=== PATIENT | female | born 1950 | race Two or more races ===

== ENCOUNTER 2025-01-09 23:01 | Inpatient (IN) | payer MEDICARE, BC ==
[~2025-01-09] VITALS: Ht 165.1 cm; Wt 97.5 kg
[2025-01-10 00:14] LABS: BASOPHILS % (AUTO) 0.4 % (0.0-2.0); EOSINOPHILS # (AUTO) 0.1 K/uL (0.0-0.7); EOSINOPHILS % (AUTO) 1.4 % (0.0-6.0); HEMATOCRIT 39 % (33-45); HEMOGLOBIN 13.7 g/dL (11.5-14.8); LYMPHOCYTES # (AUTO) 1.4 K/uL (0.8-4.8); LYMPHOCYTES % (AUTO) 20.9 % (20.0-44.0); MEAN CORPUSCULAR HEMOGLOBIN 30 PG (26.0-33.0); MEAN CORPUSCULAR HGB CONC 35 g/dl (31.0-36.0); MEAN CORPUSCULAR VOLUME 86 fL (82-100); MONOCYTES # (AUTO) 0.7 K/uL (0.1-1.30); MONOCYTES % (AUTO) 10.6 % (2.0-12.0); NEUTROPHILS # (AUTO) 4.6 K/uL (1.8-8.9); NEUTROPHILS % (AUTO) 66.7 % (43.0-81.0); PLATELET COUNT (AUTO) 283 K/uL (150-450); RED BLOOD CELL COUNT(AUTO) 4.52 MIL/uL (4.0-5.2); RED CELL DISTRIBUTION WIDTH 12.8 % (11.5-15.0); WHITE BLOOD COUNT (AUTO) 6.9 K/uL (4.3-11.0)
[2025-01-10 00:22] LABS: CALCIUM, SERUM 9.6 mg/dL (8.5-10.1); CARBON DIOXIDE 26 mmol/L (21-32); CHLORIDE 95 mmol/L (98-107); CREATININE 0.8 mg/dL (0.6-1.3); GLUCOSE 111 mg/dL (74-106); POTASSIUM 4.5 mmol/L (3.5-5.1); SODIUM SERUM 127 mmol/L (136-145); UREA NITROGEN, BLOOD 17 mg/dL (7-18)
[2025-01-10] MEDS: IV NS 0.9% 1,000 ML BAG IV ONE (00:22)
[2025-01-10 00:35] LABS: ALANINE AMINOTRANSFERASE 24 U/L (12-78); ALKALINE PHOSPHATASE 137 U/L (46-116); ASPARTATE AMINOTRANSFERASE 14 U/L (15-37); BILIRUBIN,DIRECT 0.1 mg/dL (0.0-0.2); BILIRUBIN,TOTAL 0.2 mg/dL (0.2-1.0); LIPASE 28 U/L (16-77); TOTAL PROTEIN, SERUM 7.3 g/dL (6.4-8.2)
[2025-01-10] MEDS ORDERED: IV NS 0.9% 250 ML IV ONE (00:40)
[2025-01-10] MEDS ORDERED: CT SWABBABLE VALVE TRANS SET 1 EA INFUS.SET MC ONE (00:40)
[2025-01-10] MEDS ORDERED: IOHEXOL-350 100 ML VIAL IV ONE (00:40)
[2025-01-10] MEDS ORDERED: METHOCARBAMOL (500MG) 500 MG TABLET ONE (01:41)
[2025-01-10] MEDS: METHOCARBAMOL (750MG) 750 MG TABLET PO SCH (02:01)
[2025-01-10] MEDS ORDERED: MAGNESIUM HYDROXIDE 30 ML UDC PO PRN (03:30)
[2025-01-10] MEDS ORDERED: Z GUARD REMEDY 4 OZ OINT TP PRN (03:30)
[2025-01-10] MEDS: IV NS 0.9% 1,000 ML IV PRN ×2 (05:10→13:04)
[2025-01-10 05:16] VITALS: BP 139/89; TEMP 97.5; O2SAT 100
[2025-01-10 08:00] VITALS: BP 143/83; TEMP 97.9; O2SAT 99
[2025-01-10] MEDS: PANTOPRAZOLE 40 MG TABLET.DR PO SCH (08:30)
[2025-01-10] MEDS: ENOXAPARIN SODIUM 40 MG/0.4 ML DISP.SYRIN SQ SCH (09:00)
[2025-01-10] MEDS: METHOCARBAMOL (500MG) 500 MG TABLET PO SCH (11:58)
[2025-01-10 12:00] VITALS: BP 120/70; TEMP 97.3; O2SAT 100
[2025-01-10 15:44] LABS: BASOPHILS % (AUTO) 0.5 % (0.0-2.0); EOSINOPHILS # (AUTO) 0.1 K/uL (0.0-0.7); EOSINOPHILS % (AUTO) 1.1 % (0.0-6.0); HEMATOCRIT 36 % (33-45); HEMOGLOBIN 12.8 g/dL (11.5-14.8); LYMPHOCYTES # (AUTO) 1.3 K/uL (0.8-4.8); LYMPHOCYTES % (AUTO) 25.6 % (20.0-44.0); MEAN CORPUSCULAR HEMOGLOBIN 31 PG (26.0-33.0); MEAN CORPUSCULAR HGB CONC 35 g/dl (31.0-36.0); MEAN CORPUSCULAR VOLUME 87 fL (82-100); MONOCYTES # (AUTO) 0.7 K/uL (0.1-1.30); MONOCYTES % (AUTO) 12.8 % (2.0-12.0); NEUTROPHILS # (AUTO) 3.1 K/uL (1.8-8.9); PLATELET COUNT (AUTO) 257 K/uL (150-450); RED BLOOD CELL COUNT(AUTO) 4.18 MIL/uL (4.0-5.2); RED CELL DISTRIBUTION WIDTH 12.7 % (11.5-15.0); WHITE BLOOD COUNT (AUTO) 5.1 K/uL (4.3-11.0)
[2025-01-10 15:50] LABS: APPEARANCE,URINE CLEAR (CLEAR); BILIRUBIN,URINE NEGATIVE (NEGATIVE); BLOOD, URINE NEGATIVE Ery/uL (NEGATIVE); COLOR,URINE YELLOW (YELLOW); KETONES,URINE NEGATIVE (NEGATIVE); LEUKOCYTE ESTERASE ,URINE NEGATIVE (NEGATIVE); NITRITE, URINE NEGATIVE (NEGATIVE); PH,URINE 6.5 (5.0-8.0); PROTEIN,URINE NEGATIVE (NEGATIVE); UGLUCOSE NEGATIVE (NEGATIVE); UROBILINOGEN,URINE 0.2 EU/dL (0.2)
[2025-01-10 16:00] VITALS: BP 126/65; TEMP 97.5; O2SAT 100
[2025-01-10 16:24] LABS: CALCIUM, SERUM 8.8 mg/dL (8.5-10.1); CREATININE 0.7 mg/dL (0.6-1.3); MAGNESIUM 2.1 mg/dL (1.8-2.4); PHOSPHORUS 4.6 mg/dL (2.5-4.9); POTASSIUM 4.8 mmol/L (3.5-5.1)
[2025-01-10 16:47] LABS: THYROID STIMULATING HORMONE 2.74 uIU/mL (0.358-3.74)
[2025-01-10] MEDS ORDERED: ALPR0.5T8 PO (18:05)
[2025-01-10] MEDS ORDERED: ERGO500093 PO (18:05)
[2025-01-10] MEDS ORDERED: METO25TA4 PO (18:05)
[2025-01-10] MEDS ORDERED: TROS20TA3 PO (18:05)
[2025-01-10] MEDS ORDERED: KETO5DRO39 EACHEYE (18:05)
[2025-01-10] MEDS ORDERED: PANT40TA49 PO (18:05)
[2025-01-10] MEDS ORDERED: GEMTESA PO (18:05)
[2025-01-10] MEDS ORDERED: OLME20TA23 PO ×2 (18:05)
[2025-01-10] MEDS ORDERED: LATANOPROST 0.005% EACHEYE (18:05)
[2025-01-10] MEDS ORDERED: NITR100C15 PO (18:05)
[2025-01-10] MEDS ORDERED: METH750T3 PO (18:05)
[2025-01-10] MEDS ORDERED: CARB-53 PO (18:05)
[2025-01-10] MEDS ORDERED: NORT25CA PO (18:05)
[2025-01-10 20:00] VITALS: BP 158/92; TEMP 97.7; O2SAT 98
[2025-01-10] MEDS: CARBAMAZEPINE XR 200 MG TAB.SR.12H PO SCH (21:00)
[2025-01-10] MEDS ORDERED: CARBAMAZEPINE 200 MG TABLET ONE (22:12)
[2025-01-11] VITALS: BP 153/80; TEMP 97.8; O2SAT 99
[2025-01-11] MEDS: MAG HYDROX/AL HYDROX/SIMETH 30 ML UDC PO PRN (01:00)
[2025-01-11 04:00] VITALS: BP 154/82; TEMP 98.4; O2SAT 100
[2025-01-11] MEDS: LOSARTAN POTASSIUM 50 MG TABLET PO SCH (04:35)
[2025-01-11] MEDS: NORTRIPTYLINE HCL 25 MG CAPSULE PO SCH (07:00)
[2025-01-11 07:01] LABS: BASOPHILS % (AUTO) 0.3 % (0.0-2.0); EOSINOPHILS # (AUTO) 0.1 K/uL (0.0-0.7); EOSINOPHILS % (AUTO) 0.9 % (0.0-6.0); HEMATOCRIT 38 % (33-45); HEMOGLOBIN 13.3 g/dL (11.5-14.8); LYMPHOCYTES % (AUTO) 12.2 % (20.0-44.0); MEAN CORPUSCULAR HEMOGLOBIN 30 PG (26.0-33.0); MEAN CORPUSCULAR HGB CONC 35 g/dl (31.0-36.0); MEAN CORPUSCULAR VOLUME 87 fL (82-100); MONOCYTES # (AUTO) 0.7 K/uL (0.1-1.30); MONOCYTES % (AUTO) 8.4 % (2.0-12.0); NEUTROPHILS # (AUTO) 6.7 K/uL (1.8-8.9); NEUTROPHILS % (AUTO) 78.2 % (43.0-81.0); PLATELET COUNT (AUTO) 292 K/uL (150-450); RED BLOOD CELL COUNT(AUTO) 4.41 MIL/uL (4.0-5.2); RED CELL DISTRIBUTION WIDTH 12.7 % (11.5-15.0); WHITE BLOOD COUNT (AUTO) 8.6 K/uL (4.3-11.0)
[2025-01-11 07:19] LABS: CALCIUM, SERUM 9.2 mg/dL (8.5-10.1); CREATININE 0.6 mg/dL (0.6-1.3); POTASSIUM 4.5 mmol/L (3.5-5.1)
[2025-01-11 07:54] LABS: THYROID STIMULATING HORMONE 3.31 uIU/mL (0.358-3.74); URIC ACID 2.7 mg/dL (2.6-7.2)
[2025-01-11 08:00] VITALS: BP 160/88; TEMP 98.2; O2SAT 99
[2025-01-11] MEDS ORDERED: METO-357 PO (09:03)
[2025-01-11] MEDS: METOPROLOL SUCCINATE 25 MG TAB.SR.24H PO SCH (10:02)
[2025-01-11] MEDS: TROSPIUM CHLORIDE 20 MG PO SCH (10:02)
[2025-01-11] MEDS: CARBAMAZEPINE 200 MG PO SCH (10:02)
[2025-01-11 10:16] LABS: HBSAG SCREEN Negative (Negative); HEPATITIS A AB, IgM Negative (Negative); HEPATITIS B CORE AB, IgM Negative (Negative)
[2025-01-11 12:00] VITALS: BP 137/76; TEMP 98.1; O2SAT 99
[2025-01-11] MEDS: METHOCARBAMOL (750MG) 750 MG TABLET PO PRN (15:07)
[2025-01-11 16:00] VITALS: BP 137/76; TEMP 98.1; O2SAT 99
[2025-01-11] MEDS: KETOROLAC EYE 0.5% 3 ML BOTTLE EACHEYE SCH (16:00)
[2025-01-11] MEDS ORDERED: METOPROLOL SUCCINATE 25 MG TAB.SR.24H PO SCH (16:00)
[2025-01-11] MEDS ORDERED: LOSARTAN POTASSIUM 50 MG TABLET PO SCH (16:00)
[2025-01-11] MEDS: PANTOPRAZOLE 40 MG TABLET.DR PO SCH (16:57)
[2025-01-11 20:00] VITALS: BP 157/82; TEMP 98.1; O2SAT 99
[2025-01-12] VITALS: BP 140/85; TEMP 98.2; O2SAT 99
[2025-01-12] MEDS: ALPRAZOLAM 0.5 MG TABLET PO PRN (00:59)
[2025-01-12 04:00] VITALS: BP 138/82; TEMP 98; O2SAT 99
[2025-01-12] MEDS: LATANOPROST 0.005% EACHEYE SCH (04:00)
[2025-01-12] MEDS: GEMTESA 75 MG PO SCH (04:20)
[2025-01-12 08:10] VITALS: BP 160/93; TEMP 97.7; O2SAT 97
[2025-01-12 12:00] VITALS: BP 138/78
[2025-01-12] MEDS: ACETAMINOPHEN 325 MG TABLET PO PRN (12:08)
[2025-01-12] MEDS: FAMOTIDINE (20 MG) 20 MG TABLET PO SCH (12:52)
[2025-01-12 16:00] VITALS: BP 153/85; TEMP 97.5; O2SAT 99
[2025-01-12] MEDS: HOME MED MISCELLANEOUS OP ONE (16:55)
[2025-01-12] MEDS: DOCUSATE SODIUM 100 MG CAPSULE PO SCH (17:00)
[2025-01-12 20:00] VITALS: BP 139/81; TEMP 98.2; O2SAT 100
[2025-01-13 04:00] VITALS: BP 154/84; TEMP 98.1; O2SAT 100
[2025-01-13 08:10] VITALS: BP 158/95; TEMP 97.7; O2SAT 100
[2025-01-13] MEDS: POLYETHYLENE GLYCOL 3350 17 GM POWD.PACK PO PRN (09:43)
[2025-01-13] MEDS ORDERED: GADOTERATE MEGLUMINE 10 MMOL/20 ML VIAL IV ONE (14:08)
[2025-01-13 16:10] VITALS: BP 143/81; TEMP 97.7; O2SAT 100
[2025-01-13 20:00] VITALS: BP 143/81; TEMP 97.7; O2SAT 100
[2025-01-14 04:00] VITALS: BP 140/80; TEMP 98.1; O2SAT 98
[2025-01-14 08:00] VITALS: BP 156/78; TEMP 97.9; O2SAT 100
[2025-01-14] MEDS: ONDANSETRON HCL/PF 4 MG/2 ML VIAL IVP PRN (11:54)
[2025-01-14] MEDS ORDERED: methylPREDNISolone SOD SUCC 40 MG/ML VIAL IV SCH ×2 (13:00)
[2025-01-14] MEDS: methylPREDNISolone SOD SUCC 1,000 MG in IV NS 0.9% 250 ML IV SCH (15:00)
[2025-01-14] MEDS ORDERED: RITUXAN IV (15:42)
[2025-01-14 16:00] VITALS: BP 154/88; TEMP 97.5; O2SAT 99
[2025-01-14] MEDS ORDERED: RIVAROXABAN 10 MG TABLET PO SCH ×2 (18:30)
[2025-01-14] MEDS: methylPREDNISolone SOD SUCC 1,000 MG in IV NS 0.9% 250 ML IV ONE (18:55)
[2025-01-14] MEDS: [UNRECOGNIZED DRUG - OTHER] PO SCH (20:07)
[2025-01-14] MEDS ORDERED: VANCOMYCIN 1 GM /D5W 250 ML PB IV ONE (23:15)
[2025-01-14] MEDS: VANCOMYCIN 1 GM in IV D5W 250 ML IV ONE (23:26)
[2025-01-14 23:50] VITALS: BP 132/71; TEMP 98.1; O2SAT 96
[2025-01-15 00:26] VITALS: BP 150/90; TEMP 98.1; O2SAT 96
[2025-01-15 05:51] VITALS: BP 148/80; TEMP 97.7; O2SAT 95
[2025-01-15 08:15] VITALS: BP 159/99; TEMP 97.9; O2SAT 99
[2025-01-15] MEDS: VANCOMYCIN 1 GM in IV D5W 250ml IV SCH (09:35)
[2025-01-15 16:15] VITALS: BP 171/98; TEMP 97.7; O2SAT 99
[2025-01-15 16:38] LABS: BASOPHILS % (AUTO) 0.2 % (0.0-2.0); EOSINOPHILS % (AUTO) 0.2 % (0.0-6.0); HEMATOCRIT 39 % (33-45); HEMOGLOBIN 13.5 g/dL (11.5-14.8); LYMPHOCYTES # (AUTO) 1.3 K/uL (0.8-4.8); LYMPHOCYTES % (AUTO) 12.5 % (20.0-44.0); MEAN CORPUSCULAR HEMOGLOBIN 30 PG (26.0-33.0); MEAN CORPUSCULAR HGB CONC 35 g/dl (31.0-36.0); MEAN CORPUSCULAR VOLUME 87 fL (82-100); MONOCYTES # (AUTO) 1.3 K/uL (0.1-1.30); MONOCYTES % (AUTO) 11.8 % (2.0-12.0); NEUTROPHILS # (AUTO) 8.1 K/uL (1.8-8.9); NEUTROPHILS % (AUTO) 75.3 % (43.0-81.0); PLATELET COUNT (AUTO) 310 K/uL (150-450); RED BLOOD CELL COUNT(AUTO) 4.49 MIL/uL (4.0-5.2); RED CELL DISTRIBUTION WIDTH 12.8 % (11.5-15.0); WHITE BLOOD COUNT (AUTO) 10.7 K/uL (4.3-11.0)
[2025-01-15 16:47] LABS: CALCIUM, SERUM 9.5 mg/dL (8.5-10.1); CREATININE 0.7 mg/dL (0.6-1.3); POTASSIUM 4.3 mmol/L (3.5-5.1)
[2025-01-15] MEDS: RIVAROXABAN 10 MG TABLET PO SCH (17:16)
[2025-01-15 20:00] VITALS: BP 179/90; TEMP 98.1; O2SAT 97
[2025-01-16 04:00] VITALS: BP 140/90
[2025-01-16 08:00] VITALS: BP 164/110; TEMP 97.5; O2SAT 99
[2025-01-16] MEDS: ERGOCALCIFEROL (VITAMIN D 2) 50,000 UNIT CAPSULE PO SCH (10:51)
[2025-01-16 10:59] LABS: BASOPHILS % (AUTO) 0.1 % (0.0-2.0); EOSINOPHILS % (AUTO) 0.1 % (0.0-6.0); HEMATOCRIT 36 % (33-45); HEMOGLOBIN 12.5 g/dL (11.5-14.8); LYMPHOCYTES # (AUTO) 1.2 K/uL (0.8-4.8); LYMPHOCYTES % (AUTO) 11.1 % (20.0-44.0); MEAN CORPUSCULAR HEMOGLOBIN 31 PG (26.0-33.0); MEAN CORPUSCULAR HGB CONC 35 g/dl (31.0-36.0); MEAN CORPUSCULAR VOLUME 87 fL (82-100); MONOCYTES # (AUTO) 0.6 K/uL (0.1-1.30); MONOCYTES % (AUTO) 5.9 % (2.0-12.0); NEUTROPHILS # (AUTO) 8.9 K/uL (1.8-8.9); NEUTROPHILS % (AUTO) 82.8 % (43.0-81.0); PLATELET COUNT (AUTO) 287 K/uL (150-450); RED BLOOD CELL COUNT(AUTO) 4.06 MIL/uL (4.0-5.2); RED CELL DISTRIBUTION WIDTH 12.9 % (11.5-15.0); WHITE BLOOD COUNT (AUTO) 10.7 K/uL (4.3-11.0)
[2025-01-16 11:24] LABS: CALCIUM, SERUM 9.4 mg/dL (8.5-10.1); CREATININE 0.6 mg/dL (0.6-1.3); POTASSIUM 4.2 mmol/L (3.5-5.1)
[2025-01-16 11:50] LABS: BILIRUBIN,DIRECT 0.3 mg/dL (0.0-0.2); BILIRUBIN,TOTAL 0.8 mg/dL (0.2-1.0); TOTAL PROTEIN, SERUM 6.1 g/dL (6.4-8.2)
[2025-01-16] MEDS: hydrALAZINE HCL 25 MG TABLET PO SCH (13:44)
[2025-01-16 16:00] VITALS: BP 150/80; TEMP 97.5; O2SAT 99
[2025-01-16] MEDS: SIMETHICONE 80 MG TAB.CHEW PO PRN (18:10)
[2025-01-16 20:00] VITALS: BP 128/88; TEMP 97.7; O2SAT 99
[2025-01-17 04:00] VITALS: BP 165/88; TEMP 98.2; O2SAT 99
[2025-01-17 08:00] VITALS: BP 146/88; TEMP 97.5; O2SAT 100
[2025-01-17] MEDS ORDERED: METO25TA4 PO (11:20)
[2025-01-17] MEDS ORDERED: HYDR-4076 PO (11:20)
[2025-01-17 16:00] VITALS: BP 133/85; TEMP 97.3; O2SAT 100
[2025-01-17 16:18] LABS: CALCIUM, SERUM 9.4 mg/dL (8.5-10.1); CREATININE 0.5 mg/dL (0.6-1.3); POTASSIUM 3.8 mmol/L (3.5-5.1)
[2025-01-17 20:00] VITALS: BP 153/79; TEMP 97.3; O2SAT 100
[2025-01-18 04:00] VITALS: BP 144/81; TEMP 97.7; O2SAT 99
[2025-01-18 08:00] VITALS: BP 137/81; O2SAT 93
[2025-01-18 12:15] LABS: CALCIUM, SERUM 8.9 mg/dL (8.5-10.1); CREATININE 0.6 mg/dL (0.6-1.3); POTASSIUM 4.2 mmol/L (3.5-5.1)
[2025-01-18 16:00] VITALS: BP 165/89; TEMP 97.4; O2SAT 100
[2025-01-18 20:00] VITALS: BP 146/79; TEMP 97.5; O2SAT 100
[2025-01-19 04:00] VITALS: BP 155/91; TEMP 98; O2SAT 97
[2025-01-19 08:00] VITALS: BP 146/81; TEMP 98.2; O2SAT 94
[2025-01-19] MEDS: hydrALAZINE HCL 25 MG TABLET PO SCH (13:24)
[2025-01-19 14:04] LABS: CALCIUM, SERUM 9.4 mg/dL (8.5-10.1); CREATININE 0.6 mg/dL (0.6-1.3); MAGNESIUM 2.4 mg/dL (1.8-2.4); PHOSPHORUS 3.9 mg/dL (2.5-4.9); POTASSIUM 3.8 mmol/L (3.5-5.1)
[2025-01-19 14:17] LABS: THYROID STIMULATING HORMONE 2.73 uIU/mL (0.358-3.74)
[2025-01-19 17:32] VITALS: BP 135/65; TEMP 98.2; O2SAT 94
== END 2025-01-19 19:01 | DRG 59 ==
LOC: ER 23:03 → MEDSG1 01-10 02:11 → TELE1 01-10 04:30 → MEDSG1 01-11 13:14
PROVIDERS: ADMIT Internal Medicine; ATTEND Internal Medicine
DX: G35 Multiple sclerosis (principal); E87.1 Hypo-osmolality and hyponatremia; N17.9 Acute kidney failure, unspecified; I10 Essential (primary) hypertension; Z87.440 Personal history of urinary (tract) infections; E86.9 Volume depletion, unspecified; E04.1 Nontoxic single thyroid nodule; F41.9 Anxiety disorder, unspecified; T43.015A Adverse effect of tricyclic antidepressants, initial encounter; Y92.9 Unspecified place or not applicable; E86.1 Hypovolemia; M47.815 Spondylosis without myelopathy or radiculopathy, thoracolumbar region
CPT/HCPCS: 36415; 70450-TC; 70496-TC; 70553-TC; 72156-TC; 72157-TC; 72158-TC; 76536-TC; 80048-TC; 80076-TC; 80202-TC; 82962-TC; 83690-TC; 83735-TC; 83880; 84100-TC; 84443-TC; 84484-TC; 84550-TC; 85025-TC; 85378-TC; 86480; 86850-TC; 87040-TC; 87081-TC; 87086-TC; 93307-TC; 93880-TC; 93970-TC; 93971-TC; 97110-TC; 97112-TC; 97116-TC; 97530-TC; 97535-TC; A9575; G0378; J1650; J2405; J2919; J3370; J7030; J7050; J7060; Q9967